=== PATIENT | male | born 1965 | race Two or more races ===

== ENCOUNTER 2016-04-30 18:09 | Emergency (ER) | payer OTHER ==
[2016-04-30] MEDS ORDERED: EPINEPHrine SYR 0.1 MG/ML* (1:10,000) SYRINGE ONE ×2 (20:31→20:34)
[2016-04-30] MEDS ORDERED: Sodium Bicarbonate 8.4%* 50 ML SYRINGE ONE (20:32)
[2016-04-30 21:01] VITALS: BP 169/132
--- NOTE | 2016-05-01 00:01 | ED ---
Micha Chino Janilya, scribed for Toy Brunner MD on 04/30/16 at 2053 . Cardiac Resuscitation - HPI Summary HPI Summary: A 51 y/o was BIBA to [facility] for weakness. According to EMS, pt reported that he had weakness for couple days. Patient triaged to waiting room. Patient noted to be unresponsive, brought to room 14. [facility] alert called. 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 Physical Examination - Physical Examination Completion Of Physical Exam Limited Due To: Extremis Resuscitation Termination Time: 20:38 Resuscitation: Unsuccessful - ED Findings Airway: Gag Reflex Absent, Patent Breathing: Apnea Circulation/Rhythm: Asystole Disability/Neurological: Unresponsive - ED Intervention Airway: Chin Lift Circulation/Rhythm: Chest Compressions, Epinephrine: - ED Response Circulation/Rhythm: Asystole - ED Additional Pertinent Findings Additional Pertinent Findings: Lividity Additional Pertinent Findings Comment: Mottled extremities - Glascow Coma Score Eye Openin - None Motor: 1 - None Verbal: 1 - None Coma Scale Total: 3 Diagnostics - Vital Signs Vital Signs Temp Pulse Resp BP Pulse Ox 04/30/16 18:15 98.7 F 64 18 122/82 97 - Laboratory Lab Statement: Any lab studies that have been ordered have been reviewed, and results considered in the medical decision making process. Cardiac Resus. Course/Dx - Course Course Of Treatment: tennis desk team member called for nurse to see unresponsive patient. Patient brought to room 14 where i met them. Patient unresponsive, pulseles, with apnea, asystole on monitor, mottledextremities, unreactive pupils. Asystole throuough code. bedside ultrasound showed no cardiac contraction. Code called, family notified to come in. Discussed with Dr. Ferrari, notified nursing supervisor wrapping room. - Diagnoses Provider Diagnoses: Sudden Discharge - Discharge Plan Condition: Disposition: OTHER Discharge Disposition Comment: The documentation as recorded by the Micha painting Janilya accurately reflects the service I personally performed and the decisions made by me, Toy Brunner MD.
== END 2016-04-30 20:37 | disposition expired ==
LOC: ED 18:09
DX: R53.1 Weakness
CPT/HCPCS: 99284; J0171